=== PATIENT | male | born 1940 | race Caucasian/White ===

== ENCOUNTER 2017-06-12 19:16 | Inpatient (IN) | payer MEDICARE, OTHER ==
[~2017-06-12] VITALS: Ht 375.9 cm; Wt 72.6 kg
--- NOTE | 2017-06-12 19:20 | NUR ---
PT BIBA#60 FROM HOME, PER EMS, PT WAS SMEARING FECES ON WALL AND FLOODING FROM HIS APARTMENT UNIT, NAD NOTED, VSS, RESP EVEN AND UNLABORED, WAITING FOR MD LOWE.
[2017-06-12 19:42] LABS: BASOPHILS % (AUTO) 0.3 % (0.0-2.0); EOSINOPHILS # (AUTO) 0.1 /CMM (0.0-0.7); EOSINOPHILS % (AUTO) 1.1 % (0.0-6.0); HEMATOCRIT 33 % (39-51); HEMOGLOBIN 10.1 g/dL (13.5-17.5); LYMPHOCYTES # (AUTO) 4.1 /CMM (0.8-4.8); LYMPHOCYTES % (AUTO) 33.1 % (20.0-44.0); MEAN CORPUSCULAR HEMOGLOBIN 22 PG (26.0-33.0); MEAN CORPUSCULAR HGB CONC 31 g/dl (31.0-36.0); MEAN CORPUSCULAR VOLUME 71 fL (80-96); MONOCYTES # (AUTO) 0.8 /CMM (0.1-1.30); MONOCYTES % (AUTO) 6.6 % (2.0-12.0); NEUTROPHILS # (AUTO) 7.2 /CMM (1.8-8.9); NEUTROPHILS % (AUTO) 58.9 % (43.0-81.0); PLATELET COUNT (AUTO) 745 /CMM (150-450); RDW COEFFICIENT OF VARIATION 20.3 (11.5-15.0); RED BLOOD CELL COUNT(AUTO) 4.62 MIL/uL (4.5-6.0); WHITE BLOOD COUNT (AUTO) 12.3 K/uL (4.3-11.0)
[2017-06-12 19:51] LABS: CALCIUM, SERUM 9.1 mg/dL (8.5-10.1); CARBON DIOXIDE 30 mmol/L (21-32); CHLORIDE 107 mmol/L (98-107); CREATININE 1.1 mg/dL (0.6-1.3); GLUCOSE 117 mg/dL (74-106); POTASSIUM 4.6 mmol/L (3.5-5.1); SODIUM SERUM 142 mmol/L (136-145); UREA NITROGEN, BLOOD 15 mg/dL (7-18)
[2017-06-12 19:57] LABS: ALANINE AMINOTRANSFERASE 17 U/L (12-78); ALBUMIN 3.6 g/dL (3.4-5.0); ALCOHOL, BLOOD < 3 mg/dL (0-0); ALKALINE PHOSPHATASE 118 U/L (46-116); ASPARTATE AMINOTRANSFERASE 20 U/L (15-37); BILIRUBIN,DIRECT 0.1 mg/dL (0.0-0.2); BILIRUBIN,TOTAL 0.4 mg/dL (0.2-1.0); TOTAL PROTEIN, SERUM 7.9 g/dL (6.4-8.2)
[2017-06-12 19:59] LABS: SALICYLATE 0.5 mg/dL (2.8-20.0)
[2017-06-12 20:00] LABS: ACETAMINOPHEN 0 ug/ml (10-30)
--- NOTE | 2017-06-12 20:55 | NUR ---
CALLED MARGARITO HOT DIP PLATING SUPERVISOR.
--- NOTE | 2017-06-12 22:22 | NUR ---
Patient is resting comfortably in bed with eyes closed. Easily aroused. VSS
[2017-06-12 23:00] VITALS: BP 152/99
[2017-06-12] MEDS ORDERED: MAGNESIUM HYDROXIDE 30 ML UDC PO PRN (23:00)
[2017-06-12] MEDS ORDERED: ACETAMINOPHEN 325 MG TABLET PO PRN (23:00)
[2017-06-12] MEDS ORDERED: MAG HYDROX/AL HYDROX/SIMETH 30 ML UDC PO PRN (23:00)
--- NOTE | 2017-06-12 23:00 | NUR ---
GPS ADMISSION NOTE, RECEIVED PATIENT FROM E.R. / HOME. PATIENT ARRIVED ON THIS UNIT AT 2300 VIA STRETCHER WITH 2 EMT ESCORTS. PATIENT ADMITTED ON A 5150 HOLD FOR GD. PER HOLD PATIENT FOUND AT HOME SMEARED WITH FECES ON HIS FACE AND APARTMENT [place]. PATIENT IS CONFUSED, DISORGANIZED, DISORIENTED, ANXIOUS, RESTLESS, AGITATED, YELLING, AND RAMBLING. PATIENT IS UNABLE TO GIVE A VIABLE PLAN OF SELF CARE. THE 5150 WAS REVIEWED AND THE DOCUMENTATION IN THE 5150 HOLD APPEARS TO REFLECT THE PRESENTATION OF THE PATIENT. UPON FACE TO FACE ASSESSMENT PATIENT IS CURRENTLY LYING IN BED AWAKE, HAS NO S/S OR COMPLAINTS OF PAIN. PATIENT IS DISPLAYING NO S/S OF APPARENT DISTRESS. PATIENT BREATHING IS UNLABORED WITH EQUAL RISE AND FALL OF THE CHEST. PATIENT IS ALERT AND ORIENTATED X 1 ON ROOM AIR. PATIENT ASSISTED WITH TURING AND REPOSITIONING Q2HR AND PRN FOR COMFORT AND CIRCULATION. PATIENT HAS NO NEEDS AT THIS TIME. PATIENT IS NOTED TO BEING CONFUSED, ANXIOUS, DISHEVELED, DISORGANIZED, UNCOOPERATIVE, AND NEEDS REDIRECTION. PATIENT DENIES SUICIDE IDEATIONS AND HOMICIDAL IDEATIONS AT THIS TIME. PATIENT IS UNDER THE PSYCHIATRIC CARE OF DR. CLEMENS AND THE MEDICAL CARE OF DR SAMANIEGO. PATIENT BELONGINGS WERE INVENTORIED AND CHECKED FOR CONTRABAND. ALL CONTRABAND REMOVED AND STORED IN PATIENT HALLWAY LOCKER. PATIENT ADVANCED DIRECTIVES PREFERENCE, IMMUNIZATIONS QUESTIONER, NECESSARY PAPERWORK, AND SKIN ASSESSMENT COMPLETED. PATIENT ORIENTATED TO ROOM, FLOOR, AND STAFF WITH ALL QUESTIONS ANSWERED. PATIENT EDUCATED ON THE USE OF THE CALL FERRARI. PATIENT BED SIDE RAILS ARE UP X 2 FOR SAFETY. PATIENT BED IS LOCKED, LOW AND I WILL CONTINUE TO MONITOR THIS PATIENT Q 15 MIN WITH THE HELP OF STAFF TO MAINTAIN SAFETY.
[2017-06-12] MEDS ORDERED: DONE10TA44 PO (23:16)
[2017-06-12] MEDS ORDERED: AMLO2.5T PO (23:16)
[2017-06-12] MEDS ORDERED: clonazePAM 0.5 MG TABLET ONE (23:48)
[2017-06-12] MEDS: clonazePAM 0.5 MG TABLET PO PRN (23:52)
--- NOTE | 2017-06-12 23:52 | NUR ---
GPS RN NOTE, PATIENT IS HYPERVERBAL AND ANXIOUS AT THIS TIME. PATIENT VITAL SIGNS ARE STABLE. GAVE KLONOPIN 0.5 MG PO Q6HR PRN ORDERED. I NEEDED TO CRUSH MEDICATION AND MIX IT WITH PUDDING BUT WHEN I GAVE IT TO THE PATIENT. THIS PATIENT SPIT SOME OUT. WILL CONTINUE TO MONITOR THIS PATIENT.
--- NOTE | 2017-06-13 00:12 | NUR ---
GPS RN NOTE, PATIENT REFUSED TO TAKE LOPRESSOR 12.5 MG PO Q12HR ORDERED. OFFERED LOPRESSOR THREE TIMES AND STILL PATIENT REFUSED STATING, " GET THAT SHIT AWAY FROM ME ". EDUCATED THE PATIENT ON THE RISKS AND BENEFITS OF TAKING AND REFUSING AFOREMENTIONED MEDICATION. WILL CONTINUE TO MONITOR THIS PATIENT.
[2017-06-13 08:00] VITALS: BP 159/93
[2017-06-13 08:23] LABS: CHOLESTEROL 152 mg/dL (<200); HDL CHOLESTEROL 59 mg/dL (40-60); LDL 89 mg/dL (0-99); TRIGLYCERIDES 39 mg/dL (30-150)
[2017-06-13 08:24] LABS: CREATININE 1.2 mg/dL (0.6-1.3)
[2017-06-13] MEDS: METOPROLOL TARTRATE 25 MG TABLET PO SCH ×3 (08:38→22:07)
[2017-06-13] MEDS ORDERED: hydrALAZINE HCL 25 MG TABLET PO PRN (11:00)
--- NOTE | 2017-06-13 11:16 | NUR ---
WOUND CARE CONSULT: PT REFUSED SKIN ASSESSMENT AND WAS VERY AGITATED. WILL SEE PT PT CONDITION PERMITS. CURRENT BRYAN SCORE IS 20.
[2017-06-13] MEDS: clonazePAM 0.5 MG TABLET PO PRN (11:35)
[2017-06-13] MEDS: AMLODIPINE BESYLATE 2.5 MG TABLET PO SCH (11:35)
--- NOTE | 2017-06-13 11:35 | NUR ---
[id number]: GAVE KLONOPIN 0.5 MG PO DUE TO SEVERE ANXIETY UPON PT REQUEST AND WILL CONTINUE TO MONITOR FOR EFFECTIVENESS OF MEDICATION
--- NOTE | 2017-06-13 12:35 | NUR ---
[id number]: GAVE TYLENOL 650 MG PO DUE TO GENERALIZED PAIN / UON PT REQUEST AND WILL CONTINUE TO MONITOR FOR EFFECTIVENESS OF MEDICATION
[2017-06-13 15:03] LABS: THYROID STIMULATING HORMONE 2.915 uIU/mL (0.358-3.74)
--- NOTE | 2017-06-13 15:05 | NUR ---
[id number]: NOTIFIED DR. MOTT ABOUT LAB RESULTS ON 06/13/17: IRON=41, % SATURATION=10 AND CHEST X-RAY RESULTS. NO NEW ORDERS GIVEN AT THIS TIME.
[2017-06-13 16:00] VITALS: BP 123/87
[2017-06-13 20:13] VITALS: BP 147/90
[2017-06-13] MEDS: QUETIAPINE FUMARATE 25 MG TABLET PO SCH (22:05)
[2017-06-14 08:00] VITALS: BP 140/84
[2017-06-14] MEDS: METOPROLOL TARTRATE 25 MG TABLET PO SCH ×2 (08:51→21:52)
[2017-06-14] MEDS: AMLODIPINE BESYLATE 2.5 MG TABLET PO SCH (08:52)
--- NOTE | 2017-06-14 11:56 | NUR ---
RN Note: 1115 redness on back, right elbow, and right heel found. Wound consult ordered
[2017-06-14] MEDS ORDERED: Z GUARD REMEDY 2 OZ OINT TP PRN (12:00)
--- NOTE | 2017-06-14 13:18 | NUR ---
Discharge Planning: DUSTIN called and left a voicemail for Luis from [facility], , informing him that the patient will be stabilized at [facility] and then possibly transported to [facility] memory care unit.
[2017-06-14] MEDS: clonazePAM 0.5 MG TABLET PO PRN (14:33)
[2017-06-14 15:43] LABS: BASOPHILS % (AUTO) 0.1 % (0.0-2.0); EOSINOPHILS # (AUTO) 0.1 /CMM (0.0-0.7); HEMATOCRIT 37 % (39-51); HEMOGLOBIN 11.3 g/dL (13.5-17.5); LYMPHOCYTES # (AUTO) 1.9 /CMM (0.8-4.8); LYMPHOCYTES % (AUTO) 18.5 % (20.0-44.0); MEAN CORPUSCULAR HEMOGLOBIN 22 PG (26.0-33.0); MEAN CORPUSCULAR HGB CONC 31 g/dl (31.0-36.0); MEAN CORPUSCULAR VOLUME 71 fL (80-96); MONOCYTES # (AUTO) 0.4 /CMM (0.1-1.30); MONOCYTES % (AUTO) 4.3 % (2.0-12.0); NEUTROPHILS # (AUTO) 7.8 /CMM (1.8-8.9); NEUTROPHILS % (AUTO) 76.1 % (43.0-81.0); PLATELET COUNT (AUTO) 304 /CMM (150-450); RDW COEFFICIENT OF VARIATION 22.3 (11.5-15.0); RED BLOOD CELL COUNT(AUTO) 5.22 MIL/uL (4.5-6.0); WHITE BLOOD COUNT (AUTO) 10.2 K/uL (4.3-11.0)
[2017-06-14 16:00] VITALS: BP 138/80
[2017-06-14 16:10] LABS: LYMPHOCYTES % (MANUAL) 14 % (16-48); MONOCYTES % (MANUAL) 3 % (0-11.0); NEUTROPHILS % (MANUAL) 83 (42-76)
--- NOTE | 2017-06-14 19:30 | NUR ---
GPS RN NOTE, RECEIVED PATIENT AWAKE AND IN BED NO S/S OR COMPLAINTS OF PAIN AT THIS TIME. PATIENT IS DISPLAYING NO S/S OF APPARENT DISTRESS AT THIS TIME. PATIENT BREATHING IS UNLABORED WITH EQUAL RISE AND FALL OF THE CHEST. PATIENT IS ALERT AND ORIENTED X 1 ON ROOM AIR WITH A SPOO2 99 %. PATIENT IS SELECTIVE WITH MEDICATION, CONFUSED, EASILY AGITATED, ANXIOUS AT TIMES, COOPERATIVE, DISORGANIZED, AND NEEDS REORIENTATION. PATIENT HAS ONE TO ONE SITTER FOR FALL. PATIENT DENIES SUICIDE IDEATIONS AND HOMICIDAL IDEATIONS AT THIS TIME. PATIENT ASSISTED WITH TURNING AND REPOSITIONING Q2HR AND PRN FOR COMFORT AND CIRCULATION. PATIENT HAS NO NEEDS AT THIS TIME. PATIENT EDUCATED ON THE USE OF THE CALL FERRARI. PATIENT BED SIDE RAILS UP X 2 FOR SAFETY. PATIENT BED IS LOCKED AND LOW WILL CONTINUE TO MONITOR AND MAINTAIN SAFETY Q15 MIN WITH THE HELP OF STAFF.
[2017-06-14 20:05] VITALS: BP 158/90
[2017-06-14] MEDS: QUETIAPINE FUMARATE 25 MG TABLET PO SCH (21:52)
[2017-06-15] MEDS: AMLODIPINE BESYLATE 2.5 MG TABLET PO SCH (08:31)
[2017-06-15] MEDS: METOPROLOL TARTRATE 25 MG TABLET PO SCH ×2 (08:31→22:31)
[2017-06-15 08:36] VITALS: BP 143/70
--- NOTE | 2017-06-15 10:02 | NUR ---
Initial Discharge Note: As patient was unable to provide any meaningful information, DUSTIN called his POA, Cristian Bonilla [phone] / [phone] / [phone]. Cristian informed DUSTIN that patient lived alone at [address] [place] [address] and could not return there. He stated that patient had been on a waiting list for the memory care unit at [facility] for over a year and that a bed had become available for him. Cristian stated that the only way to hold on to that bed is to transfer patient to the psychiatric unit at [facility]. Cristian stated that the only reason patient was brought to [facility] was because Cristian had not been with patient at that time and patient was brought in to the closest facility. Cristian stated that any other placement would be unacceptable and he would not approve it. Cristian wanted to speak with the psychiatrist. DUSTIN made Dr. Zepeda aware of this and provided doctor with Cristian's contact information. SW to follow up.
--- NOTE | 2017-06-15 10:42 | NUR ---
Transfer: DUSTIN contacted Shanika from intake at [facility] [phone] / fax number [phone]. Shanika stated that all of the paperwork [history+physical/ progress notes / lab work/ medication/hold paperwork] need to be faxed over and reviewed by the doctor. DUSTIN faxed the required paperwork and asked Shanika to confirm when she receives it. DUSTIN to schedule transportation once Shanika confirms the transfer. DUSTIN also contacted pt's AVA, Cristian Bonilla [phone] / [phone] / [phone] and updated him.
--- NOTE | 2017-06-15 14:13 | NUR ---
Discharge Planning: DUSTIN called and spoke with bilingual patient support caseworker Luis from [facility], . Luis stated that the memory care unit at [facility] is under quarantine and might be for the foreseeable future. Due to this change of events, patient cannot be transported to the psychiatric facility at [facility]. DUSTIN made pt's Cristian ESCALANTE [phone] / [phone] / [phone] aware of this change.
--- NOTE | 2017-06-15 14:16 | NUR ---
Discharge Planning: DUSTIN was contacted by Dylan from [employer] [phone], who stated that he will be assisting in placing patient in a memory care unit or board and care while patient waits for bed availability at [facility]. Dylan stated that he will come to assess patient and to discuss the next steps with executive secretary social welfare in regards to discharge planning. Dylan stated that he will notify pt's POA, Cristian Bonilla [phone] / [phone] / [phone]. DUSTIN to follow up.
[2017-06-15] MEDS: clonazePAM 0.5 MG TABLET PO PRN (17:47)
--- NOTE | 2017-06-15 17:58 | NUR ---
GPS/RN PATIENT IS AGITATED, ANXIOUS, SHOUTING AT STAFF, UNABLE TO REDIRECT, ADMINISTERED KLONOPIN PO ORDERED, WILL CONTINUE TO MONITOR.
[2017-06-15 20:00] VITALS: BP 135/97
[2017-06-15 22:22] VITALS: BP 135/97
[2017-06-15] MEDS: QUETIAPINE FUMARATE 25 MG TABLET PO SCH (22:29)
[2017-06-16 08:00] VITALS: BP 128/89
[2017-06-16] MEDS: QUETIAPINE FUMARATE 25 MG TABLET PO SCH ×4 (08:44→22:20)
[2017-06-16] MEDS: METOPROLOL TARTRATE 25 MG TABLET PO SCH ×2 (08:45→22:00)
[2017-06-16] MEDS: AMLODIPINE BESYLATE 2.5 MG TABLET PO SCH (08:45)
--- NOTE | 2017-06-16 10:56 | NUR ---
WOUND CARE CONSULT: UNABLE TO SEE PT FOR SKIN ASSESSMENT DUE TO PT'S AGITATION.
[2017-06-16] MEDS: clonazePAM 0.5 MG TABLET PO PRN (11:57)
[2017-06-16] MEDS ORDERED: QUETIAPINE FUMARATE 25 MG TABLET PO SCH (13:00)
--- NOTE | 2017-06-16 13:31 | NUR ---
Discharge Planning: DUSTIN met with Dylan and Darius from [facility] [employer], a [facility] referral agency, . Dylan explained that he is looking into placement for the patient and has been in communication with his POA, Cristian Bonilla [phone] / [phone] / [phone]. Dylan stated that he is working with the POA to figure out if a memory care unit or a board and care would be more appropriate. Dylan asked for the physician's report to be filled out and faxed over. SW to follow up.
[2017-06-16 16:00] VITALS: BP 145/83
[2017-06-16 20:00] VITALS: BP 138/79
[2017-06-16] MEDS: TEMAZEPAM 7.5 MG CAPSULE PO PRN (22:21)
[2017-06-17] MEDS: AMLODIPINE BESYLATE 2.5 MG TABLET PO SCH (08:58)
[2017-06-17] MEDS: QUETIAPINE FUMARATE 25 MG TABLET PO SCH ×3 (08:58→21:32)
[2017-06-17] MEDS: METOPROLOL TARTRATE 25 MG TABLET PO SCH ×2 (08:58→21:33)
[2017-06-17] MEDS: clonazePAM 0.5 MG TABLET PO PRN (08:58)
[2017-06-17] MEDS: FERROUS SULFATE (325 MG) 325 MG/TAB TABLET PO SCH ×2 (09:00→16:58)
--- NOTE | 2017-06-17 09:00 | NUR ---
GPS/RN PT REFUSED TO LET CRITICAL CARE NURSE PRACTITIONER TO CHECK HIS BP. PT WAS AGITATED, NOT REDIRECTABLE. CALLED TO RADIOLOGY TO POSTPONE THE CT SCAN TILL MEDICATION TAKES EFFECT
--- NOTE | 2017-06-17 10:48 | NUR ---
GPS/RN DR HARVEY ORDERED SEROQUEL 25MG ONCE FOR AGITATION
[2017-06-17] MEDS ORDERED: QUETIAPINE FUMARATE 25 MG TABLET PO ONE (11:00)
[2017-06-17 16:00] VITALS: BP 130/86
--- NOTE | 2017-06-17 16:25 | NUR ---
GPS/RN PT IS STILL AGITATED FOLLOWING THE CT SCAN , UNWILLING TO COLLECT THE URINE. WILL CONTINUE TO ENCOURAGE.
[2017-06-17 20:00] VITALS: BP_SYST 126; BP_SYST 139; BP_DIAS 55; BP_DIAS 97
[2017-06-17] MEDS: TEMAZEPAM 7.5 MG CAPSULE PO PRN (21:56)
--- NOTE | 2017-06-18 06:53 | NUR ---
GPS/RN- URINE SPECIMEN OBTAINED VIA IN AND OUT CATH. DONE ORDERED.
[2017-06-18 07:42] LABS: APPEARANCE,URINE CLOUDY (CLEAR); BILIRUBIN,URINE NEGATIVE (NEGATIVE); BLOOD, URINE TRACE-INTA Ery/uL (NEGATIVE); COLOR,URINE YELLOW (YELLOW); KETONES,URINE NEGATIVE (NEGATIVE); LEUKOCYTE ESTERASE ,URINE 2+ (NEGATIVE); NITRITE, URINE NEGATIVE (NEGATIVE); PH,URINE 7.5 (5.0-8.0); PROTEIN,URINE TRACE mg/dl (NEGATIVE); UGLUCOSE NEGATIVE (NEGATIVE); UROBILINOGEN,URINE 0.2 EU/dL (0.2)
[2017-06-18 08:00] VITALS: BP 110/69
[2017-06-18] MEDS: METOPROLOL TARTRATE 25 MG TABLET PO SCH ×2 (08:21→21:42)
[2017-06-18] MEDS: QUETIAPINE FUMARATE 25 MG TABLET PO SCH ×4 (08:21→21:42)
[2017-06-18] MEDS: FERROUS SULFATE (325 MG) 325 MG/TAB TABLET PO SCH ×2 (08:22→16:42)
[2017-06-18] MEDS: AMLODIPINE BESYLATE 2.5 MG TABLET PO SCH (08:22)
[2017-06-18 08:41] LABS: BACTERIA,URINE 3+ /HPF (None Seen); SQUAMOUS EPITHELIAL CELL,UR None Seen /HPF (None Seen); WBC,URINE 51-80 /HPF (0-3)
--- NOTE | 2017-06-18 14:24 | NUR ---
GPS RN NOTE : DR MOTT NOTIFIED OF PT LABS NEW T.O. ORDER KEFLEX 216 MG PO Q 6 HR ORDER PLACED AND CARED OUT.
[2017-06-18 15:58] VITALS: BP 154/95
[2017-06-18] MEDS: CEPHALEXIN MONOHYDRATE 250 MG CAPSULE PO SCH ×2 (17:20→23:59)
[2017-06-18 20:09] VITALS: BP 141/71
[2017-06-18] MEDS: TEMAZEPAM 7.5 MG CAPSULE PO PRN (21:42)
--- NOTE | 2017-06-19 03:19 | NUR ---
Pt has been A/O x3 but he needed multiple promptings to take his noc po meds last night. His affect is flat & his thoughts are disorganized.
[2017-06-19] MEDS: CEPHALEXIN MONOHYDRATE 250 MG CAPSULE PO SCH ×4 (06:45→23:50)
[2017-06-19 08:23] VITALS: BP 135/98
[2017-06-19] MEDS: FERROUS SULFATE (325 MG) 325 MG/TAB TABLET PO SCH ×2 (09:28→17:42)
[2017-06-19] MEDS: METOPROLOL TARTRATE 25 MG TABLET PO SCH ×2 (09:28→21:23)
[2017-06-19] MEDS: AMLODIPINE BESYLATE 2.5 MG TABLET PO SCH (09:29)
[2017-06-19] MEDS: QUETIAPINE FUMARATE 25 MG TABLET PO SCH ×4 (09:29→21:23)
--- NOTE | 2017-06-19 09:30 | NUR ---
GPS/RN-NOTES DAY CARE ATTENDANT REPORTED PATIENT UPPER LIPS WITH DISCOLORATION. UPON FACE TO FACE ASSESSMENT PATIENT LIPS INTACT NO BLEEDING NOTED. PATIENT UNABLE TO SAY WHAT HAPPEN OR HOW HE GET IT. PATIENT DENIES ANY PAIN OR DISCOMFORT AT THIS TIME.WILL CONT. MONITORING FOR ANY ADVERSE CHANGES.
--- NOTE | 2017-06-19 13:18 | NUR ---
Discharge Planning: DUTSIN got in touch with his POA, Cristian Bonilla [phone] / [phone] / [phone]. Cristian stated that he looked into the places that Dylan from [employer], a [facility] referral agency / [phone], suggested and approves of most facilities. Cristian stated that he is waiting on Dylan to give him a call regarding the next step. DUSTIN asked Cristian for his fax number so that she may fax the release of information form for the physician's order and medication list. Fax number provided was: [phone].
--- NOTE | 2017-06-19 13:21 | NUR ---
Discharge Planning: DUSTIN flagged the physician's report in patient's chart and informed NICKI Nix of it. NICKI Nix stated that she will let the medical doctor, Dr. Wright, know about the report and get it filled out. DUSTIN also posted a note at the nurse's station with that reminder.
[2017-06-19 15:56] VITALS: BP 132/94
--- NOTE | 2017-06-19 19:30 | NUR ---
GPS RN NOTE, RECEIVED PATIENT AWAKE AND IN BED NO S/S OR COMPLAINTS OF PAIN AT THIS TIME. PATIENT IS DISPLAYING NO S/S OF APPARENT DISTRESS AT THIS TIME. PATIENT BREATHING IS UNLABORED WITH EQUAL RISE AND FALL OF THE CHEST. PATIENT IS ALERT AND ORIENTED X 1 ON ROOM AIR WITH A SPOO2 98 %. PATIENT HAS ONE TO ONE SITTER FOR HIGH FALL RISK. PATIENT IS SELECTIVE WITH MEDICATION, CONFUSED, EASILY AGITATED, ANXIOUS AT TIMES, COOPERATIVE, DISORGANIZED, AND NEEDS REORIENTATION. PATIENT HAS ONE TO ONE SITTER FOR FALL. PATIENT DENIES SUICIDE IDEATIONS AND HOMICIDAL IDEATIONS AT THIS TIME. PATIENT ASSISTED WITH TURNING AND REPOSITIONING Q2HR AND PRN FOR COMFORT AND CIRCULATION. PATIENT HAS NO NEEDS AT THIS TIME. PATIENT EDUCATED ON THE USE OF THE CALL FERRARI. PATIENT BED SIDE RAILS UP X 2 FOR SAFETY. PATIENT BED IS LOCKED AND LOW WILL CONTINUE TO MONITOR AND MAINTAIN SAFETY Q15 MIN WITH THE HELP OF STAFF.
[2017-06-19 19:45] VITALS: BP 147/80
[2017-06-20] MEDS: CEPHALEXIN MONOHYDRATE 250 MG CAPSULE PO SCH ×3 (05:24→17:08)
[2017-06-20 08:15] VITALS: BP 148/74
[2017-06-20] MEDS: FERROUS SULFATE (325 MG) 325 MG/TAB TABLET PO SCH ×2 (10:27→16:24)
[2017-06-20] MEDS: QUETIAPINE FUMARATE 25 MG TABLET PO SCH ×4 (10:28→21:11)
[2017-06-20] MEDS: AMLODIPINE BESYLATE 2.5 MG TABLET PO SCH (10:29)
[2017-06-20] MEDS: METOPROLOL TARTRATE 25 MG TABLET PO SCH ×2 (10:32→21:13)
--- NOTE | 2017-06-20 14:42 | NUR ---
Discharge Planning: SW was contacted by Dylan from [employer], a senior housing referral agency / [phone]. Dylan stated that pt's POA, Cristian Bonilla [phone] / [phone] / [phone] approved of a secured memory care unit which is located in an assisted living facility, called [facility] [phone]. Dylan asked SW if patient was able to be assessed by the facility tomorrow [Monday]. DUSTIN consulted with patient's psychiatrist, Dr. Zepeda who thought it would be best if the assessment took place later in the week []. DUSTIN informed Dylan of this, who will coordinate the assessment. DUSTIN also got in contact with pt's POA, Cristian Bonilla [phone] / [phone] / [phone] and updated him on patient's condition and discharge plans. Cristian confirmed that he did approve the secured memory care unit located at [facility].
[2017-06-20 15:51] VITALS: BP 160/99
--- NOTE | 2017-06-20 17:05 | NUR ---
PT REFUSED CXR, RN IS AWARE.
[2017-06-20 21:02] VITALS: BP 137/84
[2017-06-21] MEDS: CEPHALEXIN MONOHYDRATE 250 MG CAPSULE PO SCH ×5 (00:50→23:38)
[2017-06-21 08:00] VITALS: BP 152/96
[2017-06-21] MEDS: QUETIAPINE FUMARATE 25 MG TABLET PO SCH ×4 (08:53→21:51)
[2017-06-21] MEDS: METOPROLOL TARTRATE 25 MG TABLET PO SCH ×2 (08:53→21:10)
[2017-06-21] MEDS: AMLODIPINE BESYLATE 2.5 MG TABLET PO SCH (08:54)
[2017-06-21] MEDS: FERROUS SULFATE (325 MG) 325 MG/TAB TABLET PO SCH ×2 (08:54→16:43)
--- NOTE | 2017-06-21 12:32 | NUR ---
Discharge Planning: Patient was assessed by Mandy, director of The [facility] [address] [place] [address], [place] [address], / fax number [phone]. DUSTIN received a call from Mandy after the assessment. Mandy stated that "patient looked good," but that she needed History and Physical and his medication list. DUSTIN faxed over the requested paperwork. Mandy also faxed a physician's report to DUSTIN to be completed by patient's medical doctor, Dr. Dyson. DUSTIN informed Dr. Dyson and RN Nemo. DUSTIN to fax over report once completed by medical doctor. Please note that it is expected that patient will be placed in the secured memory care unit at The [facility].
--- NOTE | 2017-06-21 15:00 | NUR ---
Discharge Planning: faxed physician's report to Mandy, director of The [facility] [id number] [place] [address], / fax number [phone]. The physician's report was signed off by patient's presentation designer, Dr. Dyson [address] [address] [phone]. Patient's POA Cristian Bonilla [phone] / [phone] / [phone] agreed to placement for patient.
[2017-06-21 16:10] VITALS: BP 134/91
--- NOTE | 2017-06-21 17:29 | NUR ---
[id number]: NOTIFIED DR. LEOS ABOUT CHEST X-RAY RESULTS. PENDING RETURN PHONE CALL.
[2017-06-21 19:47] VITALS: BP 130/78
[2017-06-22] MEDS: CEPHALEXIN MONOHYDRATE 250 MG CAPSULE PO SCH ×3 (06:05→17:49)
[2017-06-22 08:00] VITALS: BP 147/95
[2017-06-22] MEDS: AMLODIPINE BESYLATE 2.5 MG TABLET PO SCH (08:21)
[2017-06-22] MEDS: METOPROLOL TARTRATE 25 MG TABLET PO SCH ×2 (08:23→20:39)
[2017-06-22] MEDS: FERROUS SULFATE (325 MG) 325 MG/TAB TABLET PO SCH ×2 (08:23→16:41)
[2017-06-22] MEDS: QUETIAPINE FUMARATE 25 MG TABLET PO SCH ×4 (08:25→22:58)
--- NOTE | 2017-06-22 13:52 | NUR ---
Discharge Planning SW informed pt's AVA Cristian Cotterdevika [phone] / [phone] / [phone] that patient is set to discharge on June 27. Cristian was in agreement with the plan. SW also confirmed this with Mandy, director of The [address], [place] [address], / fax number [phone]
[2017-06-22 16:00] VITALS: BP 145/74
[2017-06-22 20:00] VITALS: BP 143/76
[2017-06-23] MEDS: CEPHALEXIN MONOHYDRATE 250 MG CAPSULE PO SCH ×4 (00:08→17:27)
[2017-06-23 08:00] VITALS: BP 137/86
[2017-06-23] MEDS: FERROUS SULFATE (325 MG) 325 MG/TAB TABLET PO SCH ×2 (08:31→16:32)
[2017-06-23] MEDS: AMLODIPINE BESYLATE 2.5 MG TABLET PO SCH (08:32)
[2017-06-23] MEDS: METOPROLOL TARTRATE 25 MG TABLET PO SCH ×2 (08:32→21:12)
[2017-06-23] MEDS: QUETIAPINE FUMARATE 25 MG TABLET PO SCH ×4 (08:33→21:12)
[2017-06-23 16:10] VITALS: BP 106/71
[2017-06-23 20:00] VITALS: BP 139/80
[2017-06-24] MEDS: CEPHALEXIN MONOHYDRATE 250 MG CAPSULE PO SCH ×5 (00:11→23:43)
--- NOTE | 2017-06-24 06:30 | NUR ---
GPS RN NOTES PT. RESTING HIS BED DENIES SI /HI AT THIS TIME , NO ACUTE DISTRESS NOTED , ALL NEEDS ATTENDED AND ANTICIPATED , ENDORSE TO NEXT SHIFT FOR CONTINUITY OF CARE .
--- NOTE | 2017-06-24 06:30 | NUR ---
GPS RN NOTES REMAINED 1:1 SITTER FOR PT. SAFETY , NO ACUTE DISTRESS NOTED ,WILL CONTINUITY OF CARE
[2017-06-24 08:10] VITALS: BP 125/88
[2017-06-24] MEDS: FERROUS SULFATE (325 MG) 325 MG/TAB TABLET PO SCH ×2 (09:27→18:06)
[2017-06-24] MEDS: QUETIAPINE FUMARATE 25 MG TABLET PO SCH ×4 (09:27→21:01)
[2017-06-24] MEDS: METOPROLOL TARTRATE 25 MG TABLET PO SCH ×2 (09:28→21:00)
[2017-06-24] MEDS: clonazePAM 0.5 MG TABLET PO PRN (09:28)
[2017-06-24] MEDS: AMLODIPINE BESYLATE 2.5 MG TABLET PO SCH (09:28)
--- NOTE | 2017-06-24 09:28 | NUR ---
RN NOTES ADMINISTERED KLONOPIN 0.5 MG PO PRN FOR ANXIETY, GET IRRITABLE EASILY, V/S TAKEN BP-125/88, P-98, CONTINUED MONITORING. 1:1 SITTER NEXT TO THE BED FOR SAFETY.
[2017-06-24 16:08] VITALS: BP 123/77
[2017-06-24 20:00] VITALS: BP 131/85
[2017-06-25] MEDS: CEPHALEXIN MONOHYDRATE 250 MG CAPSULE PO SCH ×3 (06:08→18:00)
[2017-06-25 08:00] VITALS: BP 121/76
[2017-06-25] MEDS: QUETIAPINE FUMARATE 25 MG TABLET PO SCH ×4 (08:35→21:08)
[2017-06-25] MEDS: FERROUS SULFATE (325 MG) 325 MG/TAB TABLET PO SCH ×2 (08:35→16:25)
[2017-06-25] MEDS: AMLODIPINE BESYLATE 2.5 MG TABLET PO SCH (08:36)
[2017-06-25] MEDS: METOPROLOL TARTRATE 25 MG TABLET PO SCH ×2 (08:36→21:07)
[2017-06-25 16:09] VITALS: BP 129/86
[2017-06-25 19:52] VITALS: BP 139/86
[2017-06-25] MEDS: TEMAZEPAM 7.5 MG CAPSULE PO PRN (21:09)
--- NOTE | 2017-06-25 22:15 | NUR ---
GPS RN NOTE RESTORIL 7.5MG. PATIENT RESTLESS, VERBALIZED THAT HE WANTS TO SLEEP.
--- NOTE | 2017-06-25 22:49 | NUR ---
GPS RN NOTE PATIENT SLEEPING.
[2017-06-26 07:33] LABS: ALANINE AMINOTRANSFERASE 16 U/L (12-78); ALBUMIN 3.2 g/dL (3.4-5.0); ALKALINE PHOSPHATASE 69 U/L (46-116); ASPARTATE AMINOTRANSFERASE 27 U/L (15-37); BILIRUBIN,TOTAL 0.4 mg/dL (0.2-1.0); CALCIUM, SERUM 8.8 mg/dL (8.5-10.1); CARBON DIOXIDE 28 mmol/L (21-32); CHLORIDE 107 mmol/L (98-107); CREATININE 1.1 mg/dL (0.6-1.3); GLUCOSE 89 mg/dL (74-106); MAGNESIUM 2.1 mg/dL (1.8-2.4); POTASSIUM 4.1 mmol/L (3.5-5.1); SODIUM SERUM 143 mmol/L (136-145); TOTAL PROTEIN, SERUM 7.5 g/dL (6.4-8.2); UREA NITROGEN, BLOOD 22 mg/dL (7-18)
[2017-06-26 07:52] LABS: BASOPHILS # (AUTO) 0.1 /CMM (0.0-0.2); BASOPHILS % (AUTO) 1.8 % (0.0-2.0); EOSINOPHILS # (AUTO) 0.1 /CMM (0.0-0.7); EOSINOPHILS % (AUTO) 0.9 % (0.0-6.0); LYMPHOCYTES # (AUTO) 3.1 /CMM (0.8-4.8); LYMPHOCYTES % (AUTO) 41.5 % (20.0-44.0); MEAN CORPUSCULAR HEMOGLOBIN 22 PG (26.0-33.0); MEAN CORPUSCULAR HGB CONC 30 g/dl (31.0-36.0); MEAN CORPUSCULAR VOLUME 72 fL (80-96); MONOCYTES # (AUTO) 0.4 /CMM (0.1-1.30); NEUTROPHILS # (AUTO) 3.7 /CMM (1.8-8.9); NEUTROPHILS % (AUTO) 49.8 % (43.0-81.0); PLATELET COUNT (AUTO) 250 /CMM (150-450); RDW COEFFICIENT OF VARIATION 24.4 (11.5-15.0); RED BLOOD CELL COUNT(AUTO) 5.99 MIL/uL (4.5-6.0); WHITE BLOOD COUNT (AUTO) 7.5 K/uL (4.3-11.0)
[2017-06-26 07:56] LABS: HEMATOCRIT 43 % (39-51); HEMOGLOBIN 13.1 g/dL (13.5-17.5)
[2017-06-26 08:00] VITALS: BP 120/70
[2017-06-26] MEDS: clonazePAM 0.5 MG TABLET PO PRN (09:52)
[2017-06-26] MEDS: AMLODIPINE BESYLATE 2.5 MG TABLET PO SCH (09:52)
[2017-06-26] MEDS: FERROUS SULFATE (325 MG) 325 MG/TAB TABLET PO SCH ×2 (09:52→16:20)
[2017-06-26] MEDS: QUETIAPINE FUMARATE 25 MG TABLET PO SCH ×4 (09:52→21:45)
[2017-06-26] MEDS: METOPROLOL TARTRATE 25 MG TABLET PO SCH ×2 (09:53→21:46)
--- NOTE | 2017-06-26 09:55 | NUR ---
Discharge Planning: DUSTIN received a voicemail from Mandy, director of The [address], [place] [address], / fax number [phone]. In the voicemail, Mandy stated that she did not receive the updated physician's report with standing orders. DUSTIN faxed that report on . DUSTIN re-faxed the report on 06/26 to two different fax numbers to ensure that Mandy receives it [fax #[phone] and fax #[phone]]
--- NOTE | 2017-06-26 09:56 | NUR ---
Discharge Planning: On Monday evening, DUSTIN Sky received a message from DUSTIN Corona. DUSTIN Corona informed DUSTIN Sky that Sydni from The [address], [place] [address], / fax number [phone] called and stated that the hospital needs to put in an order for a bed for patient. Sydni had asked for DUSTIN to follow up on Monday. DUSTIN Sky called Sydni on Monday morning [06/26]. Sydni stated that the room is ready for patient, but that patient does not yet have a bed. Sydni stated that AVA Bonilla [phone] / [phone] / [phone] had exhausted all of the funds and that it took a lot of effort and money [including many donations] to set patient up at The [facility]. Sydni stated that they tried different avenues to obtain a bed for patient, but were unable to do so. DUSTIN Sky stated that she should have been informed of this as soon as the issue came up. DUSTIN Sky stated that they are now working on a very tight timeline. DUSTIN to inform psychiatrist and transmission maintenance supervisor. DUSTIN will follow up on Monday and will obtain order for bed.
[2017-06-26 10:10] LABS: EOSINOPHILS % (MANUAL) 1 % (0-4); LYMPHOCYTES % (MANUAL) 39 % (16-48); MONOCYTES % (MANUAL) 6 % (0-11.0); NEUTROPHILS % (MANUAL) 54 (42-76)
[2017-06-26 16:00] VITALS: BP 128/80
[2017-06-26 21:48] VITALS: BP 122/67
[2017-06-27 08:00] VITALS: BP 131/82
[2017-06-27] MEDS: AMLODIPINE BESYLATE 2.5 MG TABLET PO SCH (09:04)
[2017-06-27] MEDS: METOPROLOL TARTRATE 25 MG TABLET PO SCH ×2 (09:04→21:33)
[2017-06-27] MEDS: QUETIAPINE FUMARATE 25 MG TABLET PO SCH ×4 (09:04→21:33)
[2017-06-27] MEDS: FERROUS SULFATE (325 MG) 325 MG/TAB TABLET PO SCH ×2 (09:04→17:11)
--- NOTE | 2017-06-27 11:52 | NUR ---
Discharge Planning: DUSTIN faxed a physician's order for a hospital bed to Mary James from [facility], phone #[phone] / fax #[phone]. DUSTIN also contacted Mary to inform her of this. DUSTIN then called The [address], [place] [address], / fax number [phone] and spoke with digital asset coordinator, Yamini. DUSTIN informed Yamini that the order had been faxed and asked her to keep SW updated on the delivery. DUSTIN called pt's POA Cristian Bonilla [phone] / [phone] / [phone] and updated him. Cristian stated that he was in agreement with discharge plan and asked SW to inform him when the discharge takes place. SW to follow up.
[2017-06-27 16:07] VITALS: BP 138/60
--- NOTE | 2017-06-27 19:30 | NUR ---
GPS RN NOTE, RECEIVED PATIENT AWAKE AND IN BED. PATIENT HAS CHRONIC LEFT HIP PAIN AT 5 OUT 10 ON THE PAIN SCALE. PATIENT IS TAKING ORAL PAIN FOR THIS PAIN. PATIENT IS DISPLAYING NO S/S OF APPARENT DISTRESS AT THIS TIME. PATIENT BREATHING IS UNLABORED WITH EQUAL RISE AND FALL OF THE CHEST. PATIENT IS ALERT AND ORIENTED X 2-3 ON ROOM AIR WITH A SPOO2 97 %PATIENT IS COMPLAINT WITH MEDICATION, ANXIOUS AT TIMES, COOPERATIVE, DISORGANIZED, AND NEEDS REORIENTATION. PATIENT DENIES SUICIDE IDEATIONS AND HOMICIDAL IDEATIONS AT THIS TIME. PATIENT ASSISTED WITH TURNING AND REPOSITIONING Q2HR AND PRN FOR COMFORT AND CIRCULATION. PATIENT HAS NO NEEDS AT THIS TIME. PATIENT EDUCATED ON THE USE OF THE CALL FERRARI. PATIENT BED SIDE RAILS UP X 2 FOR SAFETY. PATIENT BED IS LOCKED AND LOW WILL CONTINUE TO MONITOR AND MAINTAIN SAFETY Q15 MIN WITH THE HELP OF STAFF. Addendum: 06/27/17 at 1940 by AUGUSTO WOODSON RN DISREGARD WRONG PATIENT.
[2017-06-27 19:51] VITALS: BP 141/89
[2017-06-28] MEDS: TEMAZEPAM 7.5 MG CAPSULE PO PRN (00:35)
[2017-06-28 08:00] VITALS: BP 126/78
--- NOTE | 2017-06-28 08:32 | NUR ---
Discharge Planning: Yesterday, DUSTIN received a message form Mary James from [employer] phone #[phone] / fax #[phone]. DUSTIN was informed that in addition to the phsyician's order, a note from the medical doctor must be included in the request for a hospital bed. DUSTIN informed Dr. Wright, patient's medical doctor, about this. On 06/28/17, DUSTIN faxed over the completed request to Mary, phone #[phone] / fax #[phone]. DUSTIN to follow up.
[2017-06-28] MEDS: clonazePAM 0.5 MG TABLET PO PRN (08:57)
[2017-06-28] MEDS: FERROUS SULFATE (325 MG) 325 MG/TAB TABLET PO SCH ×2 (08:57→17:38)
[2017-06-28] MEDS: QUETIAPINE FUMARATE 25 MG TABLET PO SCH ×4 (08:57→21:28)
[2017-06-28] MEDS: AMLODIPINE BESYLATE 2.5 MG TABLET PO SCH (08:58)
[2017-06-28] MEDS: METOPROLOL TARTRATE 25 MG TABLET PO SCH ×2 (08:58→21:28)
--- NOTE | 2017-06-28 10:34 | NUR ---
WOUND CARE CONSULT: PT PRESENTS WITH INTACT SKIN. Z GUARD IN USE FOR PERIANAL/BUTTOCKS AREA. WILL SEE PRN.
[2017-06-28 15:55] VITALS: BP 120/86
[2017-06-28 20:26] VITALS: BP 122/79
[2017-06-29 08:00] VITALS: BP 129/71
[2017-06-29 08:35] LABS: CALCIUM, SERUM 9.2 mg/dL (8.5-10.1); CARBON DIOXIDE 27 mmol/L (21-32); CHLORIDE 104 mmol/L (98-107); CREATININE 1.2 mg/dL (0.6-1.3); GLUCOSE 90 mg/dL (74-106); MAGNESIUM 2.1 mg/dL (1.8-2.4); POTASSIUM 4.1 mmol/L (3.5-5.1); SODIUM SERUM 140 mmol/L (136-145); UREA NITROGEN, BLOOD 24 mg/dL (7-18)
[2017-06-29] MEDS: FERROUS SULFATE (325 MG) 325 MG/TAB TABLET PO SCH (08:37)
[2017-06-29] MEDS: QUETIAPINE FUMARATE 25 MG TABLET PO SCH ×2 (08:38→12:34)
[2017-06-29 08:39] VITALS: BP 129/71
[2017-06-29] MEDS: AMLODIPINE BESYLATE 2.5 MG TABLET PO SCH (08:39)
[2017-06-29] MEDS: METOPROLOL TARTRATE 25 MG TABLET PO SCH (08:39)
--- NOTE | 2017-06-29 11:49 | NUR ---
Discharge Planning: DUSTIN received a voicemail message from Yamini, branch employment coordinator, at The [address], [place] [address], / fax number [phone]. Yamini stated that the facility received the hospital bed ordered by DUSTIN. DUSTIN called Yamini back and left a voicemail message for her stating that patient will be discharged today. DUSTIN also inquired as to which doctors will be overseeing patient's care in the memory care unit.
--- NOTE | 2017-06-29 12:30 | NUR ---
GPS RN NOTE: SKIN CHECKED PICTURE PLACED IN THE CHART PT BUTTOCK AND BACK CLEAN AND INTACT .
--- NOTE | 2017-06-29 12:36 | NUR ---
Discharge Planning: DUSTIN confirmed with Yamini from The [facility] [address] [facility], [place] [address], / fax number [phone] that patient was ready for discharge. Yamini was in agreement. DUSTIN then called patient's POA Cristian Bonilla [phone] / [phone] / [phone] and informed him of the discharge. Cristian was very pleased with this. DUSTIN also discussed transportation with Cristian. Cristian stated that he would cover the cost of the transportation. DUSTIN told Cristian to expect a call from [employer]. DUSTIN called [employer] and spoke with dispatcher Gina. DUSTIN provided the details of the transport and then asked Gina to call Cristian in order to discuss the payment. DUSTIN also reiterated that patient needs to be escorted into the facility and would need to be directly received by staff member. Gina stated that she understood.
--- NOTE | 2017-06-29 12:52 | NUR ---
Discharge Note: Patient will be discharged to memory care unit at The [facility] [address] [place] [address], . Patients AVA Bonilla [phone] / [phone] / [phone] is aware and is in agreement. Patient will be transported via [employer], transportation was arranged by DUSTIN and the cost was covered by AVA Foster. The facility is aware of the discharge plan. DUSTIN informed Gina, dispatcher from [employer], that patient needs to be escorted into the memory care unit and directly received by a staff member at the facility. Patient will be followed by his ex chef, Dr. Kaur [address] [facility] [address], [place] [address], . Patient will also be under the care of clinical medical transcriptionist of [facility] [memory care unit at [facility]], Dr. Esdras Badillo [address], [place] [address] .
--- NOTE | 2017-06-29 14:43 | NUR ---
GPS RN NOTE: PT DISCHARGE TO MEMORY CARE UNIT AT THE [facility] [address] [facility], [place] [address], . PT IN STABLE CONDITION. DC ORDER FROM DR HARVEY PLACED POLE LIFT OPERATOR ELODIA WADSWORTH NOTIFIED WITH MED RECONCILIATION T.O. ORDERS DONE POLE LIFT OPERATOR NOTIFIED PT HAD LOOSE STOOL X2 WITH MUCUS AND BAD SMELL PER N.P. ELODIA WADSWORTH OK TO DC PT. ORDER PLACED PER POLE LIFT OPERATOR . EXIT CARE DONE PRINTED PT UNABLE TO SIGN DUE TO ALTERED THOUGHTS AND CONFUSION. MEDICATIONS RX GIVEN, PT CAME WITH NO BELONGINGS, DPOA LIZZIE OCHOA [phone] NOTIFIED PT TRANSPORTED VIA [employer].
== END 2017-06-29 14:40 | DRG 885 ==
LOC: ER 19:17 → GPS 22:01
PROVIDERS: ADMIT Psychiatry & Neurology Psychiatry; ATTEND Psychiatry & Neurology Psychiatry
DX: F29 Unspecified psychosis not due to a substance or known physiological condition (principal); F02.80 Dementia in other diseases classified elsewhere, unspecified severity, without behavioral disturbance, psychotic disturbance, mood disturbance, and anxiety; G30.9 Alzheimer's disease, unspecified; D64.9 Anemia, unspecified; N39.0 Urinary tract infection, site not specified; Z73.6 Limitation of activities due to disability; I10 Essential (primary) hypertension; E78.5 Hyperlipidemia, unspecified; F01.50 Vascular dementia, unspecified severity, without behavioral disturbance, psychotic disturbance, mood disturbance, and anxiety
CPT/HCPCS: 36415; 70450-TC; 71010-TC; 80048-TC; 80053-TC; 80061-TC; 80076-TC; 81000-TC; 82565-TC; 83540-TC; 83735-TC; 84443-TC; 85025-TC; 87081-TC; 87086-TC; 87186-TC; A4606; G0480; Z7610